=== PATIENT | female | born 1950 | race Two or more races ===

== ENCOUNTER 2018-12-16 11:06 | Emergency (ER) | payer OTHER ==
[~2018-12-16] VITALS: Ht 162.6 cm; Wt 123.8 kg
[~2018-12-16 11:06] MED LIST: AMOX1TAB12 PO; CIPRO500 MG PO; DIOVAN320 MG PO; GLUCOTROL10 MG PO; INTESTINEX680 MG PO; JANUMET 50-501 UDTAB PO; KETO10TA2 PO; METFORMIN HCL1000 MG PO; METFORMIN HCL750 MG PO; NORVASC2.5 MG PO; PYRIDIUM100 MG PO; SIMVASTATIN10 MG PO; SYNTHROID50 MCG; TAMS0.4C PO; TYLENOL ARTHRI650 MG
[2018-12-16] MEDS ORDERED: TRAMADOL HCL50 MG PO (13:31)
== END 2018-12-16 20:37 | disposition home or self-care (01) ==
LOC: ER 11:06
DX: R10.11 Right upper quadrant pain (principal); R10.31 Right lower quadrant pain

== ENCOUNTER 2019-01-08 08:46 | Outpatient (CLI) | payer OTHER ==
[~2019-01-08 08:46] MED LIST changes: +TRAMADOL HCL50 MG PO
== END 2019-01-08 09:01 | disposition home or self-care (01) ==
LOC: LAB 08:46
DX: N20.0 Calculus of kidney (principal)

== ENCOUNTER → 2019-02-19 10:22 | Outpatient (CLI) | payer OTHER | END | disposition home or self-care (01) | LOC: LAB 10:22 | DX: N20.1 Calculus of ureter (principal) ==

== ENCOUNTER 2019-02-23 09:20 | Outpatient (CLI) | payer OTHER | END 2019-02-23 09:36 | disposition home or self-care (01) | LOC: LAB 09:20 | DX: N20.0 Calculus of kidney (principal); N20.1 Calculus of ureter ==

== ENCOUNTER 2019-04-14 08:31 | Outpatient (CLI) | payer OTHER | END 2019-04-14 08:37 | disposition home or self-care (01) | LOC: SONOGRAMA 08:31 | DX: N20.9 Urinary calculus, unspecified (principal) ==

== ENCOUNTER 2019-08-31 09:30 | Outpatient (CLI) | payer OTHER | END 2019-08-31 09:45 | disposition home or self-care (01) | LOC: LAB 09:30 | DX: N20.0 Calculus of kidney (principal); N20.1 Calculus of ureter ==

== ENCOUNTER → 2019-09-01 | Outpatient (CLI) | payer OTHER | END | disposition home or self-care (01) | LOC: MAMO-SONO 10:15 | DX: Z12.31 Encounter for screening mammogram for malignant neoplasm of breast (principal); Z87.898 Personal history of other specified conditions ==

== ENCOUNTER 2020-10-19 12:21 | Outpatient (CLI) | payer OTHER | END 2020-10-19 12:39 | disposition home or self-care (01) | LOC: NUCLEAR 12:21 | PROVIDERS: ATTEND Obstetrics & Gynecology | DX: M81.0 Age-related osteoporosis without current pathological fracture (principal) ==